=== PATIENT | male | born 1985 | race Caucasian/White ===

== ENCOUNTER 2017-05-28 14:57 | Emergency (ER) | payer MEDICAID ==
[~2017-05-28] VITALS: Ht 177.8 cm; Wt 152.0 kg
[~2017-05-28 14:57] MED LIST: BACDS PO; CEPH-357 PO; IBUP-1984 PO; NO HOME MEDS
[2017-05-28 15:19] VITALS: BP 158/110
[2017-05-28] MEDS ORDERED: IBUP-1984 PO (15:23)
[2017-05-28] MEDS ORDERED: NEOM10DR45 RIGHT EAR (15:23)
== END 2017-05-28 15:39 | disposition home or self-care (01) ==
LOC: ER 14:58
DX: H60.91 Unspecified otitis externa, right ear (principal); F17.200 Nicotine dependence, unspecified, uncomplicated; F15.10 Other stimulant abuse, uncomplicated; F12.10 Cannabis abuse, uncomplicated
CPT/HCPCS: 99283